=== PATIENT | female | born 1985 | race Hispanic/Latino ===

== ENCOUNTER → 2020-07-10 | Outpatient (CLI) | payer OTHER ==
[~2020-07-10] MED LIST: ISOVUE-300 61% 50ML VIAL As Ordered ONE
--- NOTE | 2020-07-10 09:59 | REP ---
INDICATION: RT.WRIST PAIN. COMPARISON: Comparison is made with fluoroscopically obtained arthrographic images on this same date.. TECHNIQUE: The injection procedure is performed and dictated separately. Intra-articular contrast injected CT study of the right wrist is acquired with a helical scanning. 2 mm axial images re-formatted. Coronal and sagittal MPR images are generated. FINDINGS: There is good opacification of the radio carpal articulation. The middle carpal row is not opacified. There is no contrast in the distal radioulnar joint. There is some injection artifact in the dorsal extensor tendon sheath. No loose body is seen. No evidence of ligament disruption seen. There is subtle cyst formation in the proximal pole of the capitate bone. No erosive changes seen. No soft tissue abnormality. IMPRESSION: Normal CT arthrography of the right wrist. No evidence of triangular fibrocartilage disruption seen. <Electronically signed by Ramirez Shirley > 07/10/20 [id number]
--- NOTE | 2020-07-10 14:07 | REP ---
INDICATION: RT.WRIST PAIN. COMPARISON: None TECHNIQUE: The procedure was performed by Ale Franklin [facility], under the direct supervision of Dr. Shirley. The benefits and risks of the procedure were explained to the patient, and an informed consent was obtained. Directly prior to the start of the procedure, a formal time-out was completed in the procedure room. The right radioscaphoid joint space was localized using fluoroscopic guidance. The skin was prepped and draped in a sterile fashion. Approximately 1 mL of 1% Lidocaine 10 mg/ml was used as a local anesthetic. Using fluoroscopic guidance, a #25 gauge needle was inserted and advanced into the right radioscaphoid joint space. Approximately 8 mL of Isovue 300 was injected to verify placement, and for postprocedural imaging. The needle was removed and hemostasis was achieved, and the patient was taken to CT for postprocedural imaging. 0.2 minutes of fluoroscopy time was utilized for this procedure. Some fluoroscopic images are performed with last image hold technology. These images require no additional radiation. FINDINGS: The patient tolerated the procedure well and there were no immediate complications. IMPRESSION: 1. Right radioscaphoid CT arthrogram under fluoroscopic guidance. <Electronically signed by Ale Franklin > 07/10/20 1345 <Electronically signed by Ramirez Shirley > 07/10/20 1137
== END ==
LOC: M RADPRO 08:28
PROVIDERS: ATTEND Plastic Surgery Surgery of the Hand
DX: M25.531 Pain in right wrist (principal); R20.0 Anesthesia of skin; R20.2 Paresthesia of skin
CPT/HCPCS: 25246; 73201; 77002; Q9967